=== PATIENT | female | born 1960 | race Caucasian/White ===

== ENCOUNTER 2019-05-07 22:35 | Inpatient (IN) | payer BC ==
[~2019-05-07] VITALS: Ht 170.2 cm; Wt 84.5 kg
[2019-05-07 23:14] LABS: CLARITY,URINE SLIGHTLY CLOUDY (Clear); COLOR,URINE YELLOW (Yellow); GLUCOSE, URINE NEGATIVE (Neg); KETONES,URINE TRACE mg/dl (Neg); LEUKOCYTE ESTERASE ,URINE TRACE (Neg); NITRITES, URINE NEGATIVE (Neg); OCCULT BLOOD,URINE NEGATIVE (Neg); PROTEIN,URINE 30 mg/dl (Neg)
[2019-05-07 23:23] LABS: BASOPHILS # (AUTO) 0.1 X10'3 (0-0.2); BASOPHILS % (AUTO) 1.1 % (0-1); EOSINOPHILS # (AUTO) 0.1 X10'3 (0-0.9); EOSINOPHILS % (AUTO) 0.8 % (0-6); HEMATOCRIT 38.6 % (35.0-45.0); HEMOGLOBIN 13.6 g/dl (12.0-16.0); LYMPHOCYTES # (AUTO) 1.7 X10'3 (1.1-4.8); LYMPHOCYTES % (AUTO) 17.2 % (21-51); MEAN CORPUSCULAR HEMOGLOBIN 36.6 PG (27.0-31.0); MEAN CORPUSCULAR HGB CONC 35.2 g/dL (33.0-36.5); MEAN CORPUSCULAR VOLUME 103.9 FL (78-98); MEAN PLATELET VOLUME 7.6 FL (7.4-10.4); MONOCYTES # (AUTO) 0.4 X10'3 (0-0.9); NEUTROPHILS # (AUTO) 7.8 X10'3 (1.8-7.7); NEUTROPHILS % (AUTO) 76.9 % (42-75); PLATELET COUNT 247 X10'3 (140-440); RED BLOOD COUNT 3.72 X10'6 (4.20-5.60); RED CELL DISTRIBUTION WIDTH 13.9 % (11.5-14.5); WHITE BLOOD COUNT 10.2 X10'3 (4.5-11.0)
[2019-05-07 23:23] LABS: UA COLLECTION TYPE NON-SPECIFIED
--- NOTE | 2019-05-07 23:24 | NUR ---
verbal received from dr. brizuela for aofran and morphine.
[2019-05-07 23:25] LABS: BACTERIA,URINE FEW /HPF (Neg); MUCUS STRANDS FEW /LPF (Neg); RBC,URINE 0-2 /HPF (0-2); SQUAMOUS EPITHELIAL CELL,UR FEW /LPF (FEW); WBC,URINE 0-4 /HPF (0-4)
[2019-05-07] MEDS ORDERED: ondansetron/PF 4mg/2ml inj IV ONE (23:25)
[2019-05-07] MEDS ORDERED: morphine 4 MG/ML inj SYRINge IV ONE ×2 (23:25→23:55)
[2019-05-07] MEDS ORDERED: METO25TA6 PO (23:36)
[2019-05-07] MEDS ORDERED: RAMI5CAP65 PO (23:36)
[2019-05-07] MEDS ORDERED: FLUO20CA39 PO (23:36)
[2019-05-07 23:37] LABS: ALANINE AMINOTRANSFERASE 34 U/L (12-78); ALBUMIN 3.6 G/DL (3.4-5.0); ALKALINE PHOSPHATASE 108 IU/L (46-116); ANION GAP 12 (8-16); ASPARTATE AMINO TRANSFERASE 28 U/L (10-37); BILIRUBIN,TOTAL 0.5 MG/DL (0.1-1.0); BLOOD UREA NITROGEN 22 MG/DL (7-18); CHLORIDE 99 MMOL/L (99-107); CREATININE 1.22 MG/DL (0.40-0.90); GLUCOSE 143 MG/DL (70-104); POTASSIUM 3.9 MMOL/L (3.5-5.1); SODIUM 134 MMOL/L (135-145); TOTAL CARBON DIOXIDE 22.7 MMOL/L (24-32); TOTAL PROTEIN 7.3 G/DL (6.4-8.2); eGFR 45 ML/MIN
--- NOTE | 2019-05-07 23:48 | NUR ---
DR. ROBINS AT BEDSIDE. PT GIVEN ZOFRAN AND MORPHINE IV. BP 161/89, OTHERWISE VSS.
[2019-05-07 23:58] LABS: LIPASE 7094 U/L (73-393)
[2019-05-08] MEDS ORDERED: ondansetron/PF 4mg/2ml inj IV ONE (00:25)
--- NOTE | 2019-05-08 00:28 | NUR ---
Dr. Anne made aware Pt continue to c/o nausea and pain. Verbal order obtained for Zofran 4 mg IVP, order already in place for Morphine 4 mg IVP.
[2019-05-08 00:35] LABS: TROPONIN I < 0.04 NG/ML (0.0-0.05)
[2019-05-08] MEDS ORDERED: normal saline 1000ML IV soln IVB ONE (00:40)
[2019-05-08] MEDS: diatr meglu/diatrizoate 30ml oral sol.-(3 dose) bottle PO SCH ×2 (00:49→01:22)
[2019-05-08] MEDS ORDERED: magnesium 4gm in 100ml NS 100 ML IV PRN (03:00)
[2019-05-08] MEDS ORDERED: potassium CL 10mEq/100ml bag 100 ML IV PRN ×2 (03:00)
[2019-05-08] MEDS ORDERED: magnesium hydroxide 30ml (MOM) UD suspension PO PRN (03:00)
[2019-05-08] MEDS ORDERED: morphine 2 MG/ML inj. syringe IV PRN ×2 (03:00)
[2019-05-08] MEDS ORDERED: mag hydrox/Alum hydrox/simeth 30ml oral suspension PO PRN (03:00)
[2019-05-08] MEDS ORDERED: magnesium 2GM in 50ml NS 50 ML IV PRN (03:00)
[2019-05-08] MEDS ORDERED: acetaminophen 325mg tablet PO PRN (03:00)
[2019-05-08 03:13] LABS: TRIGLYCERIDES 134 MG/DL (20-135)
[2019-05-08 03:35] VITALS: BP 153/76
[2019-05-08] MEDS: normal saline 1000ml 1,000 ML IV SCH ×2 (03:47→13:59)
[2019-05-08] MEDS: ondansetron/PF 4mg/2ml inj IV PRN ×3 (04:06→20:44)
[2019-05-08] MEDS ORDERED: HYDROmorphone inj. 0.5 MG/0.5 ML DISP.SYRIN IV PRN (05:20)
[2019-05-08] MEDS: HYDROmorphone 1 mg/ml syringe IV PRN ×5 (05:43→21:40)
[2019-05-08 06:00] VITALS: BP 135/81
--- NOTE | 2019-05-08 06:06 | NUR ---
Patient in room [facility]TH[facility] 4015. I have received report from Gena ROMAN and had the opportunity to ask questions and assume patient care.
--- NOTE | 2019-05-08 06:40 | NUR ---
Problems reprioritized. Patient report given, questions answered & plan of care reviewed with Wendie ROMAN.
[2019-05-08] MEDS ORDERED: metoprolol tartrate 25mg tablet PO SCH (08:00)
[2019-05-08] MEDS: K and/or MAG REPLACEMENT MC SCH ×2 (08:00→19:24)
[2019-05-08] MEDS: FLUoxetine 20mg capsule PO SCH (08:16)
[2019-05-08] MEDS: lisinopril 20mg tablet PO SCH (08:17)
[2019-05-08] MEDS: heparin, porcine 5000 units/ml vial SQ SCH ×2 (08:18→19:15)
[2019-05-08 10:00] VITALS: BP 109/64
[2019-05-08] MEDS ORDERED: METO-395 PO (10:59)
[2019-05-08 17:00] VITALS: BP 117/68
--- NOTE | 2019-05-08 18:59 | NUR ---
Patient in room ORTHO 4013. I have received report from JESSIE Pressley and had the opportunity to ask questions and assume patient care.
[2019-05-08 22:00] VITALS: BP 119/68
[2019-05-09] MEDS: normal saline 1000ml 1,000 ML IV SCH ×3 (00:03→22:44)
[2019-05-09] MEDS: HYDROmorphone 1 mg/ml syringe IV PRN ×7 (00:03→22:42)
[2019-05-09] MEDS: ondansetron/PF 4mg/2ml inj IV PRN ×3 (04:15→17:39)
[2019-05-09 06:00] VITALS: BP 148/78
--- NOTE | 2019-05-09 06:20 | NUR ---
Patient in room ORTHO 4013. I have received report from JESSIE De Santiago and had the opportunity to ask questions and assume patient care.
--- NOTE | 2019-05-09 06:26 | NUR ---
Problems reprioritized. Patient report given, questions answered & plan of care reviewed with JESSIE Trujillo.
[2019-05-09 07:36] LABS: BASOPHILS % (AUTO) 0.3 % (0-1); EOSINOPHILS # (AUTO) 0.1 X10'3 (0-0.9); HEMATOCRIT 33.1 % (35.0-45.0); HEMOGLOBIN 11.3 g/dl (12.0-16.0); LYMPHOCYTES # (AUTO) 0.9 X10'3 (1.1-4.8); LYMPHOCYTES % (AUTO) 15.8 % (21-51); MEAN CORPUSCULAR HGB CONC 34.1 g/dL (33.0-36.5); MEAN CORPUSCULAR VOLUME 108.7 FL (78-98); MONOCYTES # (AUTO) 0.5 X10'3 (0-0.9); MONOCYTES % (AUTO) 7.8 % (2-12); NEUTROPHILS # (AUTO) 4.3 X10'3 (1.8-7.7); NEUTROPHILS % (AUTO) 74.1 % (42-75); PLATELET COUNT 169 X10'3 (140-440); RED BLOOD COUNT 3.05 X10'6 (4.20-5.60); RED CELL DISTRIBUTION WIDTH 13.6 % (11.5-14.5); WHITE BLOOD COUNT 5.8 X10'3 (4.5-11.0)
[2019-05-09 07:50] LABS: ALANINE AMINOTRANSFERASE 19 U/L (12-78); ALBUMIN 2.4 G/DL (3.4-5.0); ALBUMIN/GLOBULIN RATIO 0.7 (1.1-1.5); ALKALINE PHOSPHATASE 78 IU/L (46-116); ANION GAP 11 (8-16); ASPARTATE AMINO TRANSFERASE 15 U/L (10-37); BILIRUBIN,TOTAL 0.3 MG/DL (0.1-1.0); BLOOD UREA NITROGEN 9 MG/DL (7-18); BUN/CREATININE RATIO 12.9 (6.6-38.0); CALCIUM 8.2 MG/DL (8.5-10.1); CHLORIDE 107 MMOL/L (99-107); GLUCOSE 72 MG/DL (70-104); LIPASE 190 U/L (73-393); MAGNESIUM 1.7 MG/DL (1.5-2.4); POTASSIUM 4.1 MMOL/L (3.5-5.1); SODIUM 140 MMOL/L (135-145); TOTAL CARBON DIOXIDE 21.9 MMOL/L (24-32); TOTAL PROTEIN 5.9 G/DL (6.4-8.2); eGFR 85 ML/MIN
[2019-05-09] MEDS: K and/or MAG REPLACEMENT MC SCH ×2 (08:00→20:00)
[2019-05-09] MEDS: FLUoxetine 20mg capsule PO SCH (08:53)
[2019-05-09] MEDS: lisinopril 20mg tablet PO SCH (08:53)
[2019-05-09] MEDS: heparin, porcine 5000 units/ml vial SQ SCH ×2 (08:53→20:07)
[2019-05-09] MEDS: metoprolol succinate 25mg (24-HOUR) SR. Tablet PO SCH (08:54)
[2019-05-09 10:00] VITALS: BP 135/69
[2019-05-09 18:00] VITALS: BP 145/69
--- NOTE | 2019-05-09 18:20 | NUR ---
Received report from JESSIE Alberto. Assumed patient care.
--- NOTE | 2019-05-09 18:25 | NUR ---
Problems reprioritized. Patient report given, questions answered & plan of care reviewed with JESSIE Lovell. Addendum: 05/09/19 at 1826 by Cassandra Lopez RN Error. Report given to JESSIE Reed.
[2019-05-09 22:00] VITALS: BP 141/81
[2019-05-10] MEDS: ondansetron/PF 4mg/2ml inj IV PRN ×3 (02:36→17:16)
[2019-05-10] MEDS: HYDROmorphone 1 mg/ml syringe IV PRN ×6 (02:36→20:28)
--- NOTE | 2019-05-10 06:28 | NUR ---
Patient report given, questions answered and plan of care reviewed with JESSIE Brennan.
[2019-05-10 06:29] LABS: ALANINE AMINOTRANSFERASE 21 U/L (12-78); ALBUMIN 2.1 G/DL (3.4-5.0); ALBUMIN/GLOBULIN RATIO 0.6 (1.1-1.5); ALKALINE PHOSPHATASE 79 IU/L (46-116); ANION GAP 10 (8-16); ASPARTATE AMINO TRANSFERASE 18 U/L (10-37); BILIRUBIN,TOTAL 0.4 MG/DL (0.1-1.0); BLOOD UREA NITROGEN 5 MG/DL (7-18); BUN/CREATININE RATIO 8.8 (6.6-38.0); CALCIUM 8.2 MG/DL (8.5-10.1); CHLORIDE 104 MMOL/L (99-107); CREATININE 0.57 MG/DL (0.40-0.90); GLUCOSE 82 MG/DL (70-104); MAGNESIUM 1.5 MG/DL (1.5-2.4); POTASSIUM 3.6 MMOL/L (3.5-5.1); SODIUM 136 MMOL/L (135-145); TOTAL CARBON DIOXIDE 22.2 MMOL/L (24-32); TOTAL PROTEIN 5.7 G/DL (6.4-8.2); eGFR > 90 ML/MIN
[2019-05-10 06:33] LABS: BASOPHILS % (AUTO) 0.3 % (0-1); EOSINOPHILS # (AUTO) 0.1 X10'3 (0-0.9); EOSINOPHILS % (AUTO) 2.1 % (0-6); HEMATOCRIT 33.7 % (35.0-45.0); HEMOGLOBIN 11.7 g/dl (12.0-16.0); LYMPHOCYTES # (AUTO) 1.3 X10'3 (1.1-4.8); LYMPHOCYTES % (AUTO) 18.8 % (21-51); MEAN CORPUSCULAR HEMOGLOBIN 37.2 PG (27.0-31.0); MEAN CORPUSCULAR HGB CONC 34.7 g/dL (33.0-36.5); MEAN CORPUSCULAR VOLUME 107.1 FL (78-98); MEAN PLATELET VOLUME 8.2 FL (7.4-10.4); MONOCYTES # (AUTO) 0.6 X10'3 (0-0.9); MONOCYTES % (AUTO) 8.7 % (2-12); NEUTROPHILS # (AUTO) 4.7 X10'3 (1.8-7.7); NEUTROPHILS % (AUTO) 70.1 % (42-75); PLATELET COUNT 181 X10'3 (140-440); RED BLOOD COUNT 3.14 X10'6 (4.20-5.60); RED CELL DISTRIBUTION WIDTH 13.4 % (11.5-14.5); WHITE BLOOD COUNT 6.7 X10'3 (4.5-11.0)
[2019-05-10] MEDS: normal saline 1000ml 1,000 ML IV SCH ×3 (07:11→19:05)
[2019-05-10 07:14] VITALS: BP 142/75
[2019-05-10] MEDS: cyanocobalamin 500mcg tablet PO SCH (08:00)
[2019-05-10] MEDS: K and/or MAG REPLACEMENT MC SCH ×2 (08:00→20:00)
[2019-05-10] MEDS: FLUoxetine 20mg capsule PO SCH (08:00)
[2019-05-10] MEDS: lisinopril 20mg tablet PO SCH (08:01)
[2019-05-10] MEDS: metoprolol succinate 25mg (24-HOUR) SR. Tablet PO SCH (08:02)
[2019-05-10] MEDS: heparin, porcine 5000 units/ml vial SQ SCH ×2 (08:05→20:32)
[2019-05-10 18:00] VITALS: BP 147/78
--- NOTE | 2019-05-10 18:25 | NUR ---
Received patient report from JESSIE Brennan. Assumed patient care.
[2019-05-10 22:00] VITALS: BP 144/77
[2019-05-11] MEDS: ondansetron/PF 4mg/2ml inj IV PRN (01:37)
[2019-05-11] MEDS: HYDROmorphone 1 mg/ml syringe IV PRN ×4 (01:37→12:55)
[2019-05-11] MEDS: normal saline 1000ml 1,000 ML IV SCH (04:18)
[2019-05-11 06:00] VITALS: BP 153/76
--- NOTE | 2019-05-11 06:08 | NUR ---
Patient report given, questions answered and plan of care reviewed with JESSIE Brennan.
[2019-05-11 07:18] LABS: BASOPHILS % (AUTO) 0.5 % (0-1); EOSINOPHILS # (AUTO) 0.2 X10'3 (0-0.9); EOSINOPHILS % (AUTO) 2.6 % (0-6); HEMATOCRIT 32.4 % (35.0-45.0); HEMOGLOBIN 11.3 g/dl (12.0-16.0); LYMPHOCYTES # (AUTO) 1.3 X10'3 (1.1-4.8); LYMPHOCYTES % (AUTO) 21.7 % (21-51); MEAN CORPUSCULAR HEMOGLOBIN 36.9 PG (27.0-31.0); MEAN CORPUSCULAR HGB CONC 34.8 g/dL (33.0-36.5); MEAN CORPUSCULAR VOLUME 106.1 FL (78-98); MEAN PLATELET VOLUME 8.4 FL (7.4-10.4); MONOCYTES # (AUTO) 0.5 X10'3 (0-0.9); NEUTROPHILS # (AUTO) 4.1 X10'3 (1.8-7.7); NEUTROPHILS % (AUTO) 67.2 % (42-75); PLATELET COUNT 213 X10'3 (140-440); RED BLOOD COUNT 3.06 X10'6 (4.20-5.60); RED CELL DISTRIBUTION WIDTH 13.6 % (11.5-14.5); WHITE BLOOD COUNT 6.1 X10'3 (4.5-11.0)
[2019-05-11 07:19] LABS: ALANINE AMINOTRANSFERASE 17 U/L (12-78); ALBUMIN 2.1 G/DL (3.4-5.0); ALBUMIN/GLOBULIN RATIO 0.6 (1.1-1.5); ALKALINE PHOSPHATASE 74 IU/L (46-116); ANION GAP 11 (8-16); ASPARTATE AMINO TRANSFERASE 19 U/L (10-37); BILIRUBIN,TOTAL 0.3 MG/DL (0.1-1.0); BLOOD UREA NITROGEN 3 MG/DL (7-18); BUN/CREATININE RATIO 5.3 (6.6-38.0); CALCIUM 8.4 MG/DL (8.5-10.1); CHLORIDE 106 MMOL/L (99-107); CREATININE 0.57 MG/DL (0.40-0.90); GLUCOSE 67 MG/DL (70-104); MAGNESIUM 1.3 MG/DL (1.5-2.4); POTASSIUM 3.8 MMOL/L (3.5-5.1); SODIUM 139 MMOL/L (135-145); TOTAL CARBON DIOXIDE 21.9 MMOL/L (24-32); TOTAL PROTEIN 5.6 G/DL (6.4-8.2); eGFR > 90 ML/MIN
[2019-05-11] MEDS: K and/or MAG REPLACEMENT MC SCH (08:00)
[2019-05-11] MEDS: cyanocobalamin 500mcg tablet PO SCH (08:00)
[2019-05-11] MEDS: lisinopril 20mg tablet PO SCH (08:17)
[2019-05-11] MEDS: metoprolol succinate 25mg (24-HOUR) SR. Tablet PO SCH (08:17)
[2019-05-11] MEDS: FLUoxetine 20mg capsule PO SCH (08:17)
[2019-05-11] MEDS: heparin, porcine 5000 units/ml vial SQ SCH (08:24)
[2019-05-11 10:30] VITALS: BP 120/76
[2019-05-11] MEDS ORDERED: HYDR-4353 PO (11:29)
[2019-05-11] MEDS ORDERED: HYDROcodone/acetaminophen 10/325mg tab PO PRN (11:30)
[2019-05-11] MEDS ORDERED: CYAN500T63 PO (17:25)
== END 2019-05-11 17:15 | disposition home or self-care (01) | DRG 438 ==
LOC: ER 22:35 → ED HOLD 05-08 02:57 → EDBEDREQ 05-08 03:21 → ORTHO 4S 05-08 03:39
PROVIDERS: ADMIT Internal Medicine; ATTEND Internal Medicine
DX: K85.20 Alcohol induced acute pancreatitis without necrosis or infection (principal); E43 Unspecified severe protein-calorie malnutrition; N17.9 Acute kidney failure, unspecified; E53.8 Deficiency of other specified B group vitamins; E86.0 Dehydration; I12.9 Hypertensive chronic kidney disease with stage 1 through stage 4 chronic kidney disease, or unspecified chronic kidney disease; N18.3 Chronic kidney disease, stage 3 (moderate); E83.42 Hypomagnesemia; E78.1 Pure hyperglyceridemia; F10.20 Alcohol dependence, uncomplicated; Z79.899 Other long term (current) drug therapy; Z83.3 Family history of diabetes mellitus; Z88.0 Allergy status to penicillin; Z90.710 Acquired absence of both cervix and uterus; Z98.84 Bariatric surgery status; Z68.29 Body mass index [BMI] 29.0-29.9, adult
CPT/HCPCS: 36415; 74176; 80053; 81001; 82607; 83540; 83550; 83690; 83735; 84443; 84478; 84484; 85025; 87081; 87088; 96374; 96375; 96376; 99285; G0378; J1170; J1644; J2270; J2405; J7030; Q9963